=== PATIENT | male | born 1945 | race Caucasian/White ===

== ENCOUNTER → 2025-07-29 11:46 | Outpatient (CLI) | payer MEDICARE, SELFPAY ==
--- NOTE | ~2025-07-29 | XR_ITS ---
EXAMINATION: XR chest 2V, 07/29/2025 12:00 [facility] HISTORY: J44.9 - Chronic obstructive pulmonary disease, unspecified COMPARISON: No comparisons available. Technique: 2 views obtained. Findings: COPD changes. Within the left lower lobe there is a nodular density medially measuring 1 x 1 cm. No pneumothorax. Heart is normal size. Mediastinal and hilar contours are within normal limits. Bony thorax no acute abnormality. Impression: Left lung nodule. CT recommended Reviewed, dictated and finalized at location P. ING WEAVER Impression: Left lung nodule. CT recommended
== END ==
LOC: EXPTRAD 11:51
PROVIDERS: PCP Family Medicine; Visit Provider Family Medicine
DX: J44.9 Chronic obstructive pulmonary disease, unspecified (principal); R91.1 Solitary pulmonary nodule
CPT/HCPCS: 71046